=== PATIENT | male | born 1990 | race Caucasian/White ===

== ENCOUNTER 2024-06-26 02:13 | Emergency (ER) | payer OTHER, SELFPAY ==
--- NOTE | ~2024-06-26 | XR_ITS ---
CLINICAL HISTORY: fall 3 views lumbar spine Comparison: None Findings: Alignment is normal. Vertebral body heights are normal. No fracture is seen. Disc spaces appear normal. There are tiny anterior osteophytes at L3 and L4. Impression: No acute findings. This document has been electronically signed by: Gamal Coon MD on 06/26/2024 03:21:21
--- NOTE | ~2024-06-26 | XR_ITS ---
CLINICAL HISTORY: fall 4 views right elbow Comparison: None Findings: There is no fracture or dislocation. Joint spaces appear normal. No effusion is seen. Impression: Unremarkable right elbow radiographs. This document has been electronically signed by: Gamal Coon MD on 06/26/2024 03:19:54
[2024-06-26 02:26] VITALS: BP 161/86; BP 170/92; PULSE 82; PULSE 91; RESP 19; TEMP 36.6; O2SAT 96; O2SAT 98; BMI 59.4
--- NOTE | 2024-06-26 03:27 | ED_ITS ---
HPI - Fall General Chief Complaint: Fall Stated Complaint: lower back pain s/p fall Time Seen by Provider: 06/26/24 02:57 Source: patient Limitations: no limitations History of Present Illness ED Provider: Helen Doran PA-C HPI Narrative: 34-year-old male presents with right low back pain and right elbow pain. Patient states he was moving a stretcher, he subsequently slipped and fell landing on his right side. Denies weakness of lower extremities, urinary retention, bowel incontinence, paresthesia. Denies inability to flex or extend the elbow. Patient did not strike his head he does not use blood thinners. Related Data Previous Rx's ?Medication ?Instructions ?Recorded ibuprofen 600 mg tablet 600 mg PO Q6H PRN pain #20 tabs 06/26/24 methocarbamol 750 mg tablet 1,500 mg (2 x 750 mg) PO Q8H PRN 06/26/24 pain, moderate #20 tabs Allergies Allergy/AdvReac Type Severity Reaction Status Date / Time No Known Allergies Allergy Verified 06/26/24 02:28 Review of Systems Review of Systems: Yes all other systems are reviewed and are negative Constitutional: Constitutional: Denies fatigue and Denies fever(s) Musculoskeletal: Musculoskeletal: Reports back pain, Reports arthralgias, Reports joint swelling, Denies muscle weakness, Denies numbness and Denies tingling Neurologic: Denies numbness and Denies tingling Endocrine: Endocrine: Denies fatigue [facility] Past Medical History Attestation statement: The following information was validated with the patient. Social History Social History Advance Directives: No Do you have a plan to hurt others: No Plan Physical Exam Vital Signs: Vital Signs: Last Vital Signs Temp 97.8 F 06/26/24 02:26 Pulse 82 06/26/24 02:26 Resp 19 06/26/24 02:26 BP 161/86 H 06/26/24 02:26 Pulse Ox 98 06/26/24 02:26 O2 Del Method Room Air 06/26/24 02:26 BMI result Body Mass Index 59.4 Const: Other: Alert Orientation/consciousness: patient oriented x3 Resp: Effort & Inspection: normal respiratory effort Cardio: Other: Normal peripheral perfusion Skin: Other: Warm dry no rash Neuro: General: patient oriented x3, gait normal, no focal motor deficits and CN's II-XI intact bilaterally Extrem: Other: Full flexion and extension of the right elbow Psych: Other: Cooperative Medical Decision Making Medical Decision Making MDM Narrative: 34-year-old male presents with right low back pain and right elbow pain. Patient states he was moving a stretcher, he subsequently slipped and fell landing on his right side. Denies weakness of lower extremities, urinary retention, bowel incontinence, paresthesia. Denies inability to flex or extend the elbow. Patient did not strike his head he does not use blood thinners. No relevant chronic issues History: Per patient I have considered the following differential diagnoses: Fracture, dislocation, sprain, contusion, cauda equina , lumbar radiculopathy Plan: X-rays ordered from triage, are unremarkable. The patient has a contus ion with lumbar strain. He is not having radicular symptoms, he is also not having red flag signs symptoms concerning for cord compression. We will send with an anti-inflammatory and a muscle relaxant. I have independently reviewed the following tests: X-ray elbow: Impression: Unremarkable right elbow radiographs. This document has been electronically signed by: Gamal Coon MD on 06/26/2024 03:19:54 X-ray lumbar spine:Impression: No acute findings. This document has been electronically signed by: Gamal Coon MD on 06/26/2024 03:21:21 Discharge Plan Discharge Clinical Impression: Lumbar sprain, Contusion of right elbow Patient Disposition: Home, Self-Care Instructions: Acute Low Back Pain (ED), Contusion in Adults (ED) Additional Instructions: The x-rays were negative for fracture or dislocation of the lumbar spine in the elbow. You sustained a contusion and musculoskeletal strain. See home care instructions. Use the ibuprofen 600 mg taken every 6 hours with food, with the methocarbamol, this is a muscle relaxant, as needed for additional pain. To note you can not drive or operate machinery while taking this medication it will cause drowsiness. Follow up with your primary care provider as needed. Prescriptions: New methocarbamol 750 mg tablet 1,500 mg PO Q8H PRN (Reason: pain, moderate) Qty: 20 0RF ibuprofen 600 mg tablet 600 mg PO Q6H PRN (Reason: pain) Qty: 20 0RF Stand Alone Forms: Work/School Release Print Language: [place]
[2024-06-26 03:47] VITALS: BP 135/83; PULSE 68; RESP 16; TEMP 36.1; O2SAT 96
[2024-06-26] MEDS: Ibuprofen 600 MG TABLET PO (03:58)
--- NOTE | 2024-06-26 04:04 | PC.NURSE ---
medicated per mar, reviewed discharge instructions with pt. pt verbalized understanding, no sign of distress upon discharge, pt discharge with EMS co-worker.
[2024-06-26 04:05] VITALS: BP 135/83; PULSE 68; RESP 16; TEMP 36.1; O2SAT 96
== END 2024-06-26 04:05 | disposition home or self-care (01) ==
PROVIDERS: Emergency Provider Internal Medicine
DX: S39.012A Strain of muscle, fascia and tendon of lower back, initial encounter (principal); S50.01XA Contusion of right elbow, initial encounter; M25.521 Pain in right elbow; W01.0XXA Fall on same level from slipping, tripping and stumbling without subsequent striking against object, initial encounter; Y93.89 Activity, other specified; Y92.238 Other place in hospital as the place of occurrence of the external cause; Y99.0 Civilian activity done for income or pay
CPT/HCPCS: 72100; 73080; 99283; 99284

== ENCOUNTER → 2024-06-26 03:04 | Outpatient (BNV) | payer OTHER, SELFPAY | PROVIDERS: Emergency Provider Internal Medicine; Visit Provider Radiology Diagnostic Radiology | DX: M25.521 Pain in right elbow (principal); M54.50 Low back pain, unspecified | CPT/HCPCS: 72100; 73080 ==